=== PATIENT | female | born 1935 | race African-American/Black ===

== ENCOUNTER 2017-09-19 10:05 | Emergency (ER) | payer MEDICARE ==
[~2017-09-19] VITALS: Ht 165.1 cm; Wt 121.1 kg
[2017-09-19] MEDS ORDERED: KETOROLAC TROMETHAMINE 60 MG/2 ML VIAL IM ONE (10:45)
== END 2017-09-19 12:03 | disposition home or self-care (01) ==
LOC: FSED 10:05
DX: M54.5 Low back pain (principal); S39.012A Strain of muscle, fascia and tendon of lower back, initial encounter; I10 Essential (primary) hypertension; E11.9 Type 2 diabetes mellitus without complications; J45.909 Unspecified asthma, uncomplicated
CPT/HCPCS: 99283; J1885